=== PATIENT | female | born 1950 | race Caucasian/White ===

== ENCOUNTER 2016-12-24 07:04 | Day surgery (SDC) | payer MEDICARE, OTHER ==
[2016-12-19 13:19] VITALS: BMI 29.2
[2016-12-24] MEDS ORDERED: ROPIVACAINE HCL 0.5% 30ML VIAL ONE (08:13)
[2016-12-24] MEDS ORDERED: MIDAZOLAM HCL 2 MG/2 ML SINGLE DOSE VIAL ONE ×3 (08:14→08:39)
[2016-12-24] MEDS ORDERED: ceFAZolin SODIUM 1 GM VIAL ONE (08:40)
[2016-12-24] MEDS ORDERED: KETOROLAC TROMETHAMINE 30 MG/1 ML VIAL ONE (08:40)
[2016-12-24] MEDS ORDERED: LIDOCAINE HCL/PF 2% SDV 5ML VIAL ONE (08:40)
[2016-12-24] MEDS ORDERED: DEXAMETHASONE SOD PHOSPHATE 4 MG/1 ML VIAL ONE (08:40)
--- NOTE | 2016-12-24 08:54 | HP ---
[facility]ellite [facility] - Chief Complaint Chief Complaint: left shoulder pain - Past Medical History Allergies/Adverse Reactions: Allergies Allergy/AdvReac Type Severity Reaction Status Date / Time No Known Allergies Allergy Verified 12/24/16 07:52 - Current Medications Current Medications: Home Medications Medication Instructions Recorded Losartan/Hydrochlorothiazide 50 each PO DAILY 05/22/15 [Losartan-Hctz 100-25 mg Tab] Aspirin [ASA -] 81 mg PO DAILY 08/11/16 Oxycodone HCl/Acetaminophen 1 - 2 tab PO Q6H #50 tab MDD 8 12/24/16 [Percocet 5-325 mg Tablet] Pantoprazole Sodium [Protonix -] 20 mg PO DAILY 12/24/16 Satellite Physical Exam - Physical Examination Vital Signs: Vital Signs Period Temp Pulse Resp BP Sys/Yeung Pulse Ox Last 24 Hr 98.2 F 89 20 149/62 99 General Appearance: Well Nourished, Well Developed, Alert & Oriented x3 ENT: Clear Lung: Normal air movement Heart: Regular rate & rhythm Extremities: Other (left shoulder- + ttp, decr rom, + neer, + caicedo, nvi MRI + impingement, rct) Neurological: Intact, Alert, Oriented Satellite Impression/Plan - Impression/Plan Impression: left shoulder rct, impingement Operative Procedure: left shoulder arthroscopy SAD with possible RCR Date to be Performed: 12/24/16
[2016-12-24] MEDS ORDERED: ceFAZolin SODIUM 1 GM VIAL IVPB ONE (09:40)
[2016-12-24] MEDS ORDERED: oxyCODONE HCL 5 MG TABLET PO PRN ×2 (09:41)
[2016-12-24] MEDS ORDERED: ONDANSETRON 4 MG/2 ML VIAL IVPUSH PRN (09:41)
[2016-12-24] MEDS ORDERED: LACTATED RINGERS SOLUTION 1,000 ML IV SCH (09:45)
--- NOTE | 2016-12-24 10:37 | OP ---
Operative Note - Note: Operative Date: 12/24/16 ([facility]) Pre-Operative Diagnosis: left shoulder rct, impingement Operation: left shoulder arthroscopy with RCR, SAD Implants: arthrex speedbridge Post-Operative Diagnosis: Same as Pre-op Surgeon: Balwinder Vargas Etcher Enameling: Curry Traylor Anesthesiologist/GARBAGE PERSON: Wali Alva Anesthesia: Local, MAC Specimens Removed: shavings Estimated Blood Loss (mls): 5 Operative Report Dictated: Yes
--- NOTE | 2016-12-24 12:04 | SPEC ---
DATE OF OPERATION: 12/24/2016 PREOPERATIVE DIAGNOSIS: Left rotator cuff tear. POSTOPERATIVE DIAGNOSIS: Left rotator cuff tear. PROCEDURE: Arthroscopy, left shoulder, with extensive debridement in the subacromial space, and arthroscopic Arthrex SpeedBridge rotator cuff repair. SURGEON: Balwinder Vargas MD COMPOUNDING TECHNICIAN: THEODORE Vazquez ANESTHESIA: Regional and general. CLOSURE: Arthrex SpeedBridge for rotator cuff and 3-0 nylon for skin. ESTIMATED BLOOD LOSS: Negligible. COMPLICATIONS: None. CONDITION: To recovery room in stable condition. DESCRIPTION OF OPERATIVE PROCEDURE: Patient was taken to the operating room on December 24, 2016. Scalene block as well as general anesthesia was administered by the anesthesiologist. Intravenous Kefzol was administered prophylactically prior to the case. Patient was placed in the beach-chair position with all prominences well padded. The left shoulder area was prepped and draped in the usual sterile fashion. First a diagnostic arthroscopy of the glenohumeral joint was performed. A posterior portal was made 2 fingerbreadths below the acromion, first with a 15 blade followed by a blunt trocar. Circumferential exam of the glenohumeral joint revealed the following: Intact glenoid and humeral articular cartilage, intact labrum circumferentially, intact biceps and biceps anchor. There were no loose bodies in the axillary pouch. Intact subscapularis to its insertion. Looking superiorly the shoulder had a rotator cuff tear in a crescent formation. The trocar was removed from the shoulder. Next, the posterior trocar was redirected in the subacromial space. An accessory lateral portal was made using a 15 blade followed by a blunt trocar. An anterior portal was made at the level of the AC joint with a spinal needle, a 15 blade, and a blunt trocar. An extensive bursectomy and debridement of soft tissue encasing the humeral head was performed using the ArthroCare device and the shaver. Extensive bone hanging down from the acromion was debrided using the Acromionizer soledad up to the appropriate level. The coracoacromial ligament was identified and detached off the anterior acromion and visualized to drop inferiorly and was further debrided. An acromioplasty was then performed using the Acromionizer soledad up to the appropriate level. All particular debris in the shoulder was debrided using the shaver. Soft tissue encasing the rotator cuff was debrided using the shaver and the ArthroCare device exposing the rotator cuff tear beneath. The leading edge of the rotator cuff was debrided using the shaver. The greater tuberosity was cleaned of soft tissue, and a thin layer of bone was removed giving a nice bleeding surface for the rotator cuff repair. Two medial row anchors with preloaded FiberTape suture were malleted down at the articular margin and shuttled through the anterior portal. Each anchor had 2 limbs of the FiberTape suture. Individually they were shuttled back to the lateral portal. They were passed in a fanned-out position through the rotator cuff using the Livrada suture passer. After this was done, 1 of the posterior sutures was passed more anteriorly, and 1 of the anterior sutures was passed posteriorly. They were both passed through the eyelet hole of the lateral anchors and then malleted and screwed into place, both anteriorly and posteriorly. This pulled the rotator cuff down and matted it down to the greater tuberosity. The sutures were cut snug. Probing revealed excellent repair of the rotator cuff to the greater tuberosity. The shoulder was irrigated with copious amounts of irrigation. All 3 portals were closed with 3-0 nylon. A sterile pressure dressing following by a shoulder immobilizer was placed on the left upper extremity. The patient was awakened from anesthesia and transferred to the recovery room in stable condition. No complications. Estimated blood loss was negligible. Gallito [id number]
[2016-12-24 15:41] VITALS: BP 123/54; PULSE 84; TEMP 97.8
[2016-12-25] MEDS ORDERED: DIPYRIDAMOLE STRESS TEST IVPB ONE (10:00)
[2016-12-25] MEDS ORDERED: WATER IVPB ONE (10:00)
[2016-12-25] MEDS ORDERED: DEXTROSE 5% IVPB ONE (10:00)
--- NOTE | 2016-12-25 13:32 | PATH ---
Surgical Pathology Report Patient Name: FRANCISCA UPTON [facility]. Rec. #: [id number] /Age/Gender: 1950 (Age: 66) / F Account: [id number] Location: [facility] SUR[facility] Taken: 12/24/2016 Received: 12/24/2016 Reported: 12/25/2016 Physicians: Balwinder Vargas M.D. Specimen(s) Received LEFT SHOULDER SHAVINGS Clinical History Tear left shoulder Final Diagnosis SOFT TISSUE, LEFT SHOULDER, ARTHROSCOPIC SHAVINGS: SYNOVIUM AND FIBROCARTILAGE WITH MYXOHYALINE DEGENERATION. FRAGMENTS OF UNREMARKABLE SKELETAL MUSCLE AND BONE. Electronically Signed Royer Flaherty M.D. Gross Description Received in formalin, labeled "left shoulder shavings" is a 3.0 x 3.0 x 0.4 cm aggregate of acuña-yellow soft tissue fragments. A car sales representative portion is submitted in one cassette. 12/24/201612/24/2016
== END 2016-12-24 14:00 | disposition home or self-care (01) ==
LOC: JASU-SURG 07:04
PROVIDERS: ATTEND Orthopaedic Surgery
PROC: 0LQ14ZZ Repair Right Shoulder Tendon, Percutaneous Endoscopic Approach (ICD-10-PCS; 2016-12-24)
PROC: 0RBJ4ZZ Excision of Right Shoulder Joint, Percutaneous Endoscopic Approach (ICD-10-PCS; principal; 2016-12-24 08:45)
DX: M75.101 Unspecified rotator cuff tear or rupture of right shoulder, not specified as traumatic (principal)
CPT/HCPCS: 88304-TC; 94760

== ENCOUNTER 2017-11-13 08:16 | Day surgery (SDC) | payer MEDICARE, OTHER ==
[2017-11-02 15:06] VITALS: BMI 27.3
--- NOTE | 2017-11-13 07:58 | HP ---
[facility] - Chief Complaint Chief Complaint: left knee pain - Past Medical History Allergies/Adverse Reactions: Allergies Allergy/AdvReac Type Severity Reaction Status Date / Time No Known Allergies Allergy Verified 11/02/17 14:57 - Current Medications Current Medications: Home Medications Medication Instructions Recorded Losartan/Hydrochlorothiazide 50 each PO DAILY 05/22/15 [Losartan-Hctz 100-25 mg Tab] Aspirin [ASA -] 81 mg PO DAILY 08/11/16 Oxycodone HCl/Acetaminophen 1 - 2 tab PO Q6H #50 tab MDD 8 12/24/16 [Percocet 5-325 mg Tablet] Pantoprazole Sodium [Protonix -] 20 mg PO DAILY 12/24/16 Dexlansoprazole [Dexilant] 60 mg PO DAILY 11/02/17 Linaclotide [Linzess] 72 mg PO DAILY 11/02/17 Satellite Physical Exam - Physical Examination General Appearance: Well Nourished, Well Developed, Alert & Oriented x3 ENT: Clear Lung: Normal air movement Heart: Regular rate & rhythm Extremities: Other (left knee- + swelling, + ttp laterally, decr rom, nvi xrays , MRi show grade 4 lateral djd) Neurological: Intact, Alert, Oriented Satellite Impression/Plan - Impression/Plan Impression: left knee lateral djd Operative Procedure: left lateral gretel ukr Date to be Performed: 11/13/17
[2017-11-13] MEDS ORDERED: ROPIVICAINE 0.2%/MORPH PF/KETOROLAC - 51ML DISP.SYRINGE IA ONE (08:42)
[2017-11-13] MEDS ORDERED: TRANEXAMIC ACID 1000 MG/10 ML VIAL IVPUSH ONE (08:42)
[2017-11-13] MEDS ORDERED: CEFAZOLIN 1 GM/D5W 1 GM/50 ML BAG IVPB ONE (08:42)
[2017-11-13] MEDS: CELECOXIB 200 MG CAPSULE PO ONE ×2 (09:30→14:46)
[2017-11-13] MEDS: oxyCODONE HCL 10 MG SUSTAINED ACTING TABLET PO ONE ×2 (09:30→14:47)
[2017-11-13] MEDS: GABAPENTIN 300 MG CAPSULE (FP) PO ONE ×2 (09:30→14:46)
[2017-11-13] MEDS ORDERED: BUPIVACAINE LIPOSOME/PF (EXPAREL) 266 MG/20 ML VIAL ONE (10:06)
[2017-11-13] MEDS ORDERED: BUPIVACAINE HCL/PF 2.5 MG/ML - 30 ML VIAL IJ ONE (10:06)
[2017-11-13] MEDS ORDERED: SODIUM CHLORIDE 0.9% P/F 10 ML VIAL IJ ONE (10:14)
[2017-11-13] MEDS ORDERED: MIDAZOLAM HCL 2 MG/2 ML SINGLE DOSE VIAL ONE ×3 (10:14→11:29)
[2017-11-13] MEDS ORDERED: PROPOFOL 20 ML ONE ×2 (11:39→12:04)
[2017-11-13] MEDS ORDERED: ceFAZolin SODIUM 1 GM VIAL ONE (11:44)
[2017-11-13] MEDS ORDERED: MAG HYDROX/AL HYDROX/SIMETH 30 ML UNIT-DOSE CUP PO PRN (13:03)
--- NOTE | 2017-11-13 13:06 | OP ---
Operative Note - Note: Operative Date: 11/13/17 ([facility]) Pre-Operative Diagnosis: left knee lateral djd Operation: left lateral gretel ukr Post-Operative Diagnosis: Same as Pre-op Surgeon: Balwinder Vargas Company Miner Blasting: Curry Traylor Anesthesiologist/BENZENE OPERATOR: Toñito Mackey Anesthesia: Spinal, Local Specimens Removed: bone fragments Estimated Blood Loss (mls): 100 Operative Report Dictated: Yes
[2017-11-13] MEDS ORDERED: LACTATED RINGERS SOLUTION 1,000 ML IV SCH (13:15)
[2017-11-13] MEDS ORDERED: ACETAMINOPHEN 325 MG TABLET (FP) ONE (13:58)
[2017-11-13] MEDS: ACETAMINOPHEN 325 MG TABLET (FP) PO SCH ×3 (14:00→21:26)
[2017-11-13] MEDS: ONDANSETRON 4 MG/2 ML VIAL IVPUSH PRN (18:00)
[2017-11-13] MEDS: oxyCODONE HCL 5 MG TABLET PO PRN (19:59)
[2017-11-13] MEDS: CEFAZOLIN 1 GM/D5W 1 GM/50 ML BAG IVPB SCH (19:59)
[2017-11-13] MEDS: SENNOSIDES/DOCUSATE COMBO (SENNA PLUS) TABLET (UD) PO SCH (21:25)
[2017-11-13] MEDS: oxyCODONE HCL 10 MG SUSTAINED ACTING TABLET PO SCH (21:27)
[2017-11-14] MEDS: oxyCODONE HCL 5 MG TABLET PO PRN ×3 (01:28→11:34)
[2017-11-14] MEDS: ACETAMINOPHEN 325 MG TABLET (FP) PO SCH ×3 (01:29→10:05)
[2017-11-14] MEDS: CEFAZOLIN 1 GM/D5W 1 GM/50 ML BAG IVPB SCH (01:30)
[2017-11-14 03:24] VITALS: PULSE 60
[2017-11-14] MEDS: ONDANSETRON 4 MG/2 ML VIAL IVPUSH PRN (06:53)
[2017-11-14 07:35] VITALS: BP 154/82; TEMP 97.5
[2017-11-14] MEDS ORDERED: ASPIRIN 325 MG TABLET PO SCH (08:00)
[2017-11-14] MEDS: oxyCODONE HCL 10 MG SUSTAINED ACTING TABLET PO SCH (09:50)
[2017-11-14] MEDS ORDERED: HYDROCHLOROTHIAZIDE 25 MG TABLET (FP) PO SCH (10:00)
[2017-11-14] MEDS ORDERED: MULTIVITAMINS (DAILY MVI) TABLET (FP) PO SCH (10:00)
[2017-11-14] MEDS ORDERED: LOSARTAN POTASSIUM 50 MG TABLET (FP) PO SCH (10:00)
[2017-11-14] MEDS ORDERED: PATIENT'S OWN MEDICATION (NON-FORMULARY) (Dexlansoprazole [Dexilant] 60 MG) PO SCH (10:00)
[2017-11-14] MEDS ORDERED: PANTOPRAZOLE 40 MG TABLET (FP) PO SCH (10:00)
[2017-11-14] MEDS: SENNOSIDES/DOCUSATE COMBO (SENNA PLUS) TABLET (UD) PO SCH (10:34)
--- NOTE | 2017-11-16 09:51 | OP ---
DATE OF OPERATION: 11/13/2017 PREOPERATIVE DIAGNOSIS: Degenerative joint disease, left knee. POSTOPERATIVE DIAGNOSIS: Degenerative joint disease, left knee. PROCEDURE: Left lateral unicompartmental knee replacement with robotic-assisted navigation (MAKOplasty) and patelloplasty. SURGICAL ATTENDING: Balwinder Vargas MD CAT BREEDER: THEODORE Vazquez ANESTHESIA: Regional and spinal. CLOSURE: Medial MAYRA components with a 1 femur, a 2 tibia, a 10 polyethylene; No. 1 Vicryl for fascia; 0 and 2-0 for subcutaneous; 3-0 Vicryl subcuticular with skin glue for skin; 4-0 undyed Vicryl for pin sites. ESTIMATED BLOOD LOSS: Negligible. COMPLICATIONS: None. CONDITION: To recovery . DESCRIPTION OF OPERATIVE PROCEDURE: Patient was taken to the operating room on November 13, 2017. Regional and spinal anesthesia anesthesiologist. IV Kefzol was administered prophylactically prior to the case. A well-padded pneumatic tourniquet was placed on the left proximal thigh. The left lower extremity was prepped and draped in the usual sterile fashion. A 6-cm longitudinal incision from the mid patella down to the tibial tubercle on the lateral side of the knee was incised. Hemostasis achieved with Bovie cautery. Flaps were made medially and laterally down to the retinaculum and the capsule. The capsule was opened, again from mid patella down to the tibial tubercle. Proximal fat pad excision was performed, and the anterior horn of the lateral meniscus was insertion. Subperiosteal dissection was done anterior, medial, and proximal of tibia, exposing the lateral compartment. Checkpoints were malleted at both the femur and the tibia. Two parallel pins were drilled [id number] in the femur, 1 handbreadth above the patella, through 2 small stab incisions. They went through the outer cortex and up into, but not through, the posterior cortex. The same was done on the tibial shaft 1 handbreadth below the tibial tubercle through 2 incisions and up into, but not through, the posterior cortex. Through both these sets of pins, we fastened navigation arrays. The knee was registered with the navigation device with centered rotation of the hip, medial and lateral malleoli, and multiple sites on both the femur and the tibia. After registration was obtained, both the femur and the tibia were confirmed to have excellent registration with "popping the bubbles." At this point, all osteophytes in the lateral aspect of the knee were excised. The knee was taken through a range of motion while stressing the knee into varus. Poses were taken in 0, 30, 60, 90, and 120 degrees of flexion. This produced a graft of looseness/tightness. This graph was used to optimize the virtual position of the components. of the . Again, position of the components was optimized in order to maximize contact points down the middle of the femoral component. At this time, the robot was brought into the field and was registered. The to debride and bur the bone on both the femur and the tibia to the specifications. All excess bone was removed. The meniscal remnant was debrided. The knee was pulse antibiotic irrigated and cleaned. Trial components were applied. A 10-mm insert was used, found to have excellent stability throughout range of motion with full extension, full flexion. The 10-mm implant improved the hyperextension to only neutral and stability throughout the range of motion, reducing the valgus to near-neutral position, but in a position that brought the lateral ligament to be taut, but not overtight. The trial components were removed. The real components were then cemented in using the and pressurization. After the cement was hardened, the knee was thoroughly inspected to remove all excess cement. At this time, the real polyethylene insert was clipped into place. Range of motion and stability were found to be the same. The checkpoints and the pins were removed. The knee was thoroughly antibiotic irrigated. The lateral parapatellar arthrotomy was closed. Prior to doing this, any osteophytes on the patella and on the trochlea were debrided. The subcutaneous was closed with 2-0 Vicryl and then 3-0 Monocryl subcuticular with skin glue for the skin. The pins were removed from the tibia and the femur. The sites were pulse antibiotic irrigated, then closed using 4-0 undyed Vicryl. Sterile dressing was placed. Patient was awakened from anesthesia and transferred to the recovery room in stable condition . Gallito [id number]
== END 2017-11-14 12:30 | disposition home health service (06) ==
LOC: FASUSAT 08:16 → FM/S 14:10 → FASUSAT 11-14 12:30
PROVIDERS: ATTEND Orthopaedic Surgery
PROC: 8E0YXBZ Computer Assisted Procedure of Lower Extremity (ICD-10-PCS; 2017-11-13)
PROC: 8E0Y0CZ Robotic Assisted Procedure of Lower Extremity, Open Approach (ICD-10-PCS; 2017-11-13)
PROC: 0SRD0L9 Replacement of Left Knee Joint with Medial Unicondylar Synthetic Substitute, Cemented, Open Approach (ICD-10-PCS; principal; 2017-11-13 11:53)
DX: M17.12 Unilateral primary osteoarthritis, left knee (principal)
CPT/HCPCS: 20985; 27446; C1776; S2900; 73560-TC-LT-FY; 94760; 97010-GP; 97116-GP; 97161-GP

== ENCOUNTER 2017-11-16 17:05 | Emergency (ER) | payer MEDICARE, OTHER ==
[2017-11-16 17:35] VITALS: BP 126/56; PULSE 71; TEMP 97.5; BMI 29.2
--- NOTE | 2017-11-16 17:52 | PDOC ---
Rapid Medical Evaluation Time Seen by Provider: 11/16/17 17:32 Medical Evaluation: Allergies Allergy/AdvReac Type Severity Reaction Status Date / Time No Known Allergies Allergy Verified 11/16/17 17:32 11/16/17 17:33 Pt c/o: constipation x 4 days, on percocet, rectal pressure and lower abd pain Pt on brief exam: bs + x 4, Pt ordered for: kub pt to proceed to the ED Discharge Disposition - Diagnosis Constipation - Referrals - Patient Instructions - Post Discharge Activity
--- NOTE | 2017-11-16 20:08 | PDOC ---
Attending Attestation - Resident Resident Name: Terry Ordonez - ED Attending Attestation I have performed the following: I have examined & evaluated the patient, The case was reviewed & discussed with the resident, I agree w/resident's findings & plan, Exceptions are as noted - Physicial Exam PE: 11/16/17 20:07 Physical Exam General Appearance: Yes: Appropriately Dressed. No: Apparent Distress, Intoxicated HEENT: positive: EOMI, KAI, Normal ENT Inspection, Normal Voice, TMs Normal, Pharynx Normal. negative: Pale Conjunctivae, Photophobia, Scleral Icterus (R), Scleral Icterus (L) Neck: positive: Trachea midline, Normal Thyroid, Supple. negative: Tender, Rigid, Carotid bruit, Stridor, Lymphadenopathy (R), Lymphadenopathy (L), Thyromegaly Respiratory/Chest: positive: Lungs Clear, Normal Breath Sounds. negative: Chest Tender, Respiratory Distress, Accessory Muscle Use, Labored Respiration, RES, Crackles, Rales, Rhonchi, Stridor, Wheezing, Dullness Cardiovascular: positive: Regular Rhythm, Regular Rate, S1, S2. negative: Edema , JVD, Murmur, Bradycardia, Tachycardia Vascular Pulses: Dorsalis-Pedis (R): 2+, Doralis-Pedis (L): 2+ Gastrointestinal/Abdominal: positive: Normal Bowel Sounds, Flat, Soft. negative : Tender, Organomegaly, Pulsatile Mass, Increased Bowel Sounds, Decreased BS, Distended, Guarding, Rebound, Hernia, Hepatomegaly, Spleenomegaly Lymphatic: negative: Adenopathy, Tenderness Musculoskeletal: positive: Normal Inspection. negative: CVA Tenderness, Decreased Range of Motion Extremity: positive: Normal Capillary Refill, Normal Inspection, Normal Range of Motion, Pelvis Stable. negative: Tender, Pedal Edema, Swelling, Erythema Integumentary: positive: Normal Color, Dry, Warm. negative: Cyanotic, Erythema , Jaundice, Rash Neurologic: positive: senior service technician II-XII NML intact, Fully Oriented, Alert, Normal Mood/ Affect, Motor Strength 5/5. negative: EOM Palsy, Facial Droop, Sensory Deficit - Medical Decision Making 11/16/17 20:08 patient was treated and released <Eugene Castro - Last Filed: 11/16/17 20:07> - HPI HPI: 11/16/17 20:13 The patient is a 67 year old women with past medical history of recent L. knee replacement (on Percocet) and HTN presents to the emergency department with constipation. The patient presents with constipation for the past 4 days with lower abdominal pain, with relief to pain and constipation today s/p enema and miralax at home. Allergies: NKDA Social history: None reported Surgical history: LEFT SHOULDER FX 2017 PCP: None reported. <Keturah Song - Last Filed: 11/16/17 20:14>
--- NOTE | 2017-11-16 20:11 | PDOC ---
History of Present Illness - General Chief Complaint: Constipation Stated Complaint: ABD PAIN Time Seen by Provider: 11/16/17 17:32 History Source: Patient Exam Limitations: No Limitations - History of Present Illness Initial Comments: 11/16/17 20:08 Patient is a 67F with history of HTN and recent left knee replacement here today complaining of 4 days of constipation and associated lower abdominal pain. Patient reports that she had an enema and took miralax at home, which allowed her to have a bowel movement that relieved her pain. Denies chest pain, fevers, chills, and shortness of breath. Past History - Past Medical History Allergies/Adverse Reactions: Allergies Allergy/AdvReac Type Severity Reaction Status Date / Time No Known Allergies Allergy Verified 11/16/17 17:32 Home Medications: Ambulatory Orders Losartan/Hydrochlorothiazide [Losartan-Hctz 100-25 mg Tab] 50 each PO DAILY 06/05 Dexlansoprazole [Dexilant] 60 mg PO DAILY 11/02/17 Aspirin [ASA -] 325 mg PO DAILY@0800 tablet 11/13/17 Oxycodone HCl/Acetaminophen [Percocet 5-325 mg Tablet -] 1 - 2 tab PO Q6H #50 tab MDD 8 11/13/17 Anemia: No Asthma: No Cancer: No Cardiac Disorders: No CVA: No COPD: No CHF: No Dementia: No Diabetes: No GI Disorders: (colitis) Disorders: (UTI) HTN: Yes Hypercholesterolemia: Yes Liver Disease: No Seizures: No Thyroid Disease: No - Surgical History Abdominal Surgery: No Appendectomy: No Cardiac Surgery: No Cholecystectomy: No Lung Surgery: No Neurologic Surgery: No Orthopedic Surgery: Yes (LEFT SHOULDER FX 2017) - Suicide/Smoking/Psychosocial Hx Smoking History: Never smoked Have you smoked in the past 12 months: No Hx Alcohol Use: No Drug/Substance Use Hx: No Substance Use Type: None Hx Substance Use Treatment: No Review of Systems - Review of Systems Comments:: 11/16/17 20:09 GENERAL/CONSTITUTIONAL: No fever or chills. No weakness. HEAD, EYES, EARS, NOSE AND THROAT: No change in vision. No sore throat. CARDIOVASCULAR: No chest pain or shortness of breath RESPIRATORY: No cough, wheezing, or hemoptysis. GASTROINTESTINAL: No nausea, vomiting, diarrhea. +constipation. GENITOURINARY: No dysuria, frequency, or change in urination. MUSCULOSKELETAL: No joint or muscle swelling or pain. No neck or back pain. SKIN: No rash NEUROLOGIC: No headache, vertigo, loss of consciousness, or change in strength/ sensation. ENDOCRINE: No increased thirst. No abnormal weight change HEMATOLOGIC/LYMPHATIC: No anemia, easy bleeding, or history of blood clots. ALLERGIC/IMMUNOLOGIC: No hives or skin allergy. *Physical Exam - Vital Signs Last Vital Signs Temp Pulse Resp BP Pulse Ox 97.5 F L 71 19 126/56 100 11/16/17 17:32 11/16/17 17:32 11/16/17 17:32 11/16/17 17:32 11/16/17 17:32 - Physical Exam Comments: 11/16/17 20:09 GENERAL: Awake, alert, and fully oriented, in no acute distress HEAD: No signs of trauma, normocephalic, atraumatic EYES: PERRLA, EOMI, sclera anicteric, conjunctiva clear ENT: Auricles normal inspection, hearing grossly normal, nares patent, oropharynx clear without exudates. Moist mucosa NECK: Normal ROM, supple, no lymphadenopathy, JVD, or masses LUNGS: No distress, speaks full sentences, clear to auscultation bilaterally HEART: Regular rate and rhythm, normal S1 and S2, no murmurs, rubs or gallops, peripheral pulses normal and equal bilaterally. ABDOMEN: Soft, nontender, normoactive bowel sounds. No guarding, no rebound. No masses EXTREMITIES: bandaged left knee, no edema. No clubbing or cyanosis. NEUROLOGICAL: Cranial nerves II through XII grossly intact. Normal speech, no focal sensorimotor deficits SKIN: Warm, Dry, normal turgor, no rashes or lesions noted. Medical Decision Making - Medical Decision Making 11/16/17 20:09 Patient is 67F with history of htn and recent knee replacement here today with constipation. Patient had successful bowel movement. X-ray shows no evidence of constipation. Will instruct patient to take miralax as this was successful in treating her symptoms. *DC/Admit/Observation/Transfer Diagnosis at time of Disposition: Constipation - Discharge Dispostion Disposition: HOME Condition at time of disposition: Good Decision to Admit order: No - Referrals - Patient Instructions Printed Discharge Instructions: DI for Constipation Additional Instructions: Please take miralax and docusate for your constipation Please return if you have any new, worsening or concerning symptoms, especially fever, vomiting, and increasing abdominal pain. - Post Discharge Activity
== END 2017-11-16 20:13 | disposition home or self-care (01) ==
LOC: JER 17:05
DX: K59.00 Constipation, unspecified (principal); I10 Essential (primary) hypertension; E78.00 Pure hypercholesterolemia, unspecified; Z96.652 Presence of left artificial knee joint; Z87.440 Personal history of urinary (tract) infections
CPT/HCPCS: 74018-TC-FY; 99281-25

== ENCOUNTER 2021-09-04 08:57 | Day surgery (SDC) | payer MEDICARE, OTHER ==
[2021-08-30 15:23] VITALS: BMI 31.3
[2021-09-04] MEDS ORDERED: PROPOFOL 20 ML ONE ×4 (09:06)
[2021-09-04] MEDS ORDERED: LIDOCAINE HCL/PF 2% SDV 5ML VIAL ONE (09:06)
[2021-09-04 12:05] VITALS: TEMP 98.2
[2021-09-04 12:24] VITALS: BP 132/63; PULSE 73
== END 2021-09-04 12:25 | disposition home or self-care (01) ==
LOC: FASU-ENDO 08:57
PROVIDERS: ATTEND Internal Medicine Gastroenterology
PROC: 0DBL8ZX Excision of Transverse Colon, Via Natural or Artificial Opening Endoscopic, Diagnostic (ICD-10-PCS; principal; 2021-09-04 11:24)
DX: Z12.11 Encounter for screening for malignant neoplasm of colon (principal); D12.3 Benign neoplasm of transverse colon; K64.1 Second degree hemorrhoids
CPT/HCPCS: 88305-TC

== ENCOUNTER 2022-06-17 04:08 | Day surgery (SDC) | payer OTHER ==
[2022-06-13 13:16] VITALS: BMI 31.8
[~2022-06-17 04:08] MED LIST: LIDOCAINE HCL 1%, 10 MG/ML (20ML VIAL) NR ONE
[2022-06-17] MEDS ORDERED: PROPOFOL 20 ML ONE (10:07)
[2022-06-17] MEDS ORDERED: LIDOCAINE HCL/PF 2% SDV 5ML VIAL ONE (10:07)
[2022-06-17] MEDS ORDERED: MIDAZOLAM HCL 2 MG/2 ML SINGLE DOSE VIAL ONE (10:07)
[2022-06-17] MEDS ORDERED: HEPARIN NA (PORCINE) 5,000 UNITS/ML 1ML VIAL ONE (10:09)
[2022-06-17] MEDS ORDERED: LIDOCAINE HCL 1%, 10 MG/ML (20ML VIAL) ONE (10:31)
[2022-06-17] MEDS ORDERED: ceFAZolin SODIUM 1 GM VIAL IVPB ONE (10:50)
[2022-06-17] MEDS ORDERED: DEXAMETHASONE SOD PHOSPHATE 4 MG/1 ML VIAL ONE (10:53)
[2022-06-17] MEDS ORDERED: KETOROLAC TROMETHAMINE 30 MG/1 ML VIAL ONE (10:53)
[2022-06-17] MEDS ORDERED: ONDANSETRON 4 MG/2 ML VIAL ONE (10:53)
[2022-06-17] MEDS ORDERED: ceFAZolin SODIUM 1 GM VIAL ONE (10:53)
[2022-06-17] MEDS ORDERED: LIDOCAINE HCL 1%, 10 MG/ML (20ML VIAL) NR ONE (11:47)
[2022-06-17] MEDS ORDERED: ONDANSETRON 4 MG/2 ML VIAL IVPUSH PRN (12:01)
[2022-06-17] MEDS ORDERED: oxyCODONE HCL 5 MG TABLET PO PRN ×2 (12:01)
[2022-06-17] MEDS ORDERED: PROMETHAZINE HCL 25 MG/1 ML VIAL IVPB PRN (12:01)
[2022-06-17] MEDS ORDERED: LACTATED RINGERS SOLUTION 1,000 ML IV SCH (12:15)
[2022-06-17 13:56] VITALS: BP 137/54; PULSE 92; RESP 18; TEMP 97.2
== END 2022-06-17 14:21 | disposition home or self-care (01) ==
LOC: JASU-SURG 04:08
PROVIDERS: ATTEND Surgery
PROC: 0JBL0ZZ Excision of Right Upper Leg Subcutaneous Tissue and Fascia, Open Approach (ICD-10-PCS; principal; 2022-06-17 10:00)
DX: D17.23 Benign lipomatous neoplasm of skin and subcutaneous tissue of right leg (principal); L72.0 Epidermal cyst
CPT/HCPCS: 88304-TC; 94760; J1644

== ENCOUNTER 2022-06-18 13:25 | Emergency (ER) | payer OTHER ==
[2022-06-18 13:44] VITALS: RESP 18; TEMP 98.1; BMI 31.8
[2022-06-18 15:49] VITALS: BP 138/62; PULSE 88
== END 2022-06-18 15:47 | disposition home or self-care (01) ==
LOC: JER 13:25
DX: L76.82 Other postprocedural complications of skin and subcutaneous tissue (principal)
CPT/HCPCS: 99281-25

== ENCOUNTER 2022-11-10 05:17 | Day surgery (SDC) | payer OTHER ==
[2022-11-05 11:26] VITALS: BMI 31.8
[2022-11-10 07:35] VITALS: RESP 20
[2022-11-10] MEDS ORDERED: MIDAZOLAM HCL 2 MG/2 ML SINGLE DOSE VIAL ONE (09:33)
[2022-11-10] MEDS ORDERED: ONDANSETRON 4 MG/2 ML VIAL ONE (09:33)
[2022-11-10 11:38] VITALS: TEMP 97.7
[2022-11-10 18:00] VITALS: BP 118/59; PULSE 74
== END 2022-11-10 12:55 | disposition home or self-care (01) ==
LOC: JASU-SURG 05:17
PROVIDERS: ATTEND Urology
PROC: 0TF4XZZ Fragmentation in Left Kidney Pelvis, External Approach (ICD-10-PCS; principal; 2022-11-10 09:30)
DX: N20.0 Calculus of kidney (principal)

== ENCOUNTER 2022-12-12 04:20 | Day surgery (SDC) | payer OTHER ==
[2022-12-11 12:49] VITALS: BMI 31.4
[~2022-12-12 04:20] MED LIST changes: +ACETAMINOPHEN 500 MG TABLET (FP) PO PRN; -LIDOCAINE HCL 1%, 10 MG/ML (20ML VIAL) NR ONE
[2022-12-12 07:18] VITALS: RESP 18
[2022-12-12] MEDS ORDERED: LIDOCAINE HCL 1%, 10 MG/ML (20ML VIAL) ONE (07:37)
[2022-12-12] MEDS ORDERED: LIDOCAINE HCL/PF 1% SDV 5ML VIAL ONE ×2 (07:40→07:44)
[2022-12-12] MEDS ORDERED: LIDOCAINE HCL 1% PRESERVATIVE FREE - 30ML VIAL IJ ONE (08:53)
[2022-12-12] MEDS ORDERED: ACETAMINOPHEN 500 MG TABLET (FP) PO PRN (09:24)
[2022-12-12 09:52] VITALS: TEMP 97.3
[2022-12-12 10:05] VITALS: BP 127/52; PULSE 75
== END 2022-12-12 10:00 | disposition home or self-care (01) ==
LOC: JASU-SURG 04:20
PROVIDERS: ATTEND Pain Medicine Pain Medicine
PROC: 01HY3MZ Insertion of Neurostimulator Lead into Peripheral Nerve, Percutaneous Approach (ICD-10-PCS; principal; 2022-12-12 08:45)
DX: G89.4 Chronic pain syndrome (principal)
CPT/HCPCS: 64555; C1778

== ENCOUNTER 2023-01-23 04:05 | Day surgery (SDC) | payer OTHER ==
[2023-01-22 09:35] VITALS: BMI 32.4
[2023-01-23] MEDS ORDERED: LIDOCAINE HCL/PF 1% SDV 5ML VIAL ONE (07:16)
[2023-01-23] MEDS ORDERED: LIDOCAINE 1% P/F 10 MG/ML VIAL INF ONE (08:41)
[2023-01-23 09:25] VITALS: RESP 20
[2023-01-23 09:57] VITALS: BP 120/60; PULSE 70; TEMP 97
[2023-01-23] MEDS ORDERED: ACETAMINOPHEN 500 MG TABLET (FP) PO PRN (10:14)
== END 2023-01-23 09:57 | disposition home or self-care (01) ==
LOC: JASU-SURG 04:05 → EDSTATUS 10:19
PROVIDERS: ATTEND Pain Medicine Pain Medicine
PROC: 01HY3MZ Insertion of Neurostimulator Lead into Peripheral Nerve, Percutaneous Approach (ICD-10-PCS; principal; 2023-01-23 08:00)
DX: G89.4 Chronic pain syndrome (principal); M25.511 Pain in right shoulder
CPT/HCPCS: 64555; C1778

== ENCOUNTER 2024-01-06 10:48 | Day surgery (SDC) | payer OTHER ==
[2023-12-30 15:27] VITALS: BMI 31.4
[2024-01-06 11:10] VITALS: RESP 18
[2024-01-06 12:57] VITALS: BP 138/68; PULSE 82; TEMP 97
== END 2024-01-06 13:17 | disposition home or self-care (01) ==
LOC: FASU-ENDO 10:48
PROVIDERS: ATTEND Internal Medicine Gastroenterology
PROC: 0DB78ZX Excision of Stomach, Pylorus, Via Natural or Artificial Opening Endoscopic, Diagnostic (ICD-10-PCS; 2024-01-06)
PROC: 0DB68ZX Excision of Stomach, Via Natural or Artificial Opening Endoscopic, Diagnostic (ICD-10-PCS; 2024-01-06)
PROC: 0DB48ZX Excision of Esophagogastric Junction, Via Natural or Artificial Opening Endoscopic, Diagnostic (ICD-10-PCS; 2024-01-06)
PROC: 0DB98ZX Excision of Duodenum, Via Natural or Artificial Opening Endoscopic, Diagnostic (ICD-10-PCS; principal; 2024-01-06 12:18)
DX: R10.13 Epigastric pain (principal); K20.90 Esophagitis, unspecified without bleeding; K29.50 Unspecified chronic gastritis without bleeding; K31.A11 Gastric intestinal metaplasia without dysplasia, involving the antrum; K31.7 Polyp of stomach and duodenum
CPT/HCPCS: 88305-TC; 88342-TC

== ENCOUNTER 2024-02-03 11:11 | Day surgery (SDC) | payer OTHER ==
[2024-02-01 16:36] VITALS: BMI 31.4
[2024-02-03 12:18] VITALS: TEMP 97.8
[2024-02-03 12:25] VITALS: BP 115/64; PULSE 92; RESP 19
== END 2024-02-03 12:20 | disposition home or self-care (01) ==
LOC: FASU-ENDO 11:11
PROVIDERS: ATTEND Internal Medicine Gastroenterology
PROC: 0DB78ZX Excision of Stomach, Pylorus, Via Natural or Artificial Opening Endoscopic, Diagnostic (ICD-10-PCS; 2024-02-03)
PROC: 0DB68ZX Excision of Stomach, Via Natural or Artificial Opening Endoscopic, Diagnostic (ICD-10-PCS; principal; 2024-02-03 11:41)
DX: K31.A12 Gastric intestinal metaplasia without dysplasia, involving the body (corpus) (principal); K29.50 Unspecified chronic gastritis without bleeding
CPT/HCPCS: 88305-TC; 88342-TC